=== PATIENT | male | born 1955 | race Caucasian/White ===

== ENCOUNTER → 2023-12-10 07:40 | Outpatient (REF) | payer BC, SELFPAY ==
[2023-12-10 10:57] LABS: Blood Urea Nitrogen 19 mg/dl (9-20)
[2023-12-10 12:54] LABS: Erythrocyte Sed Rate 14 mm/hour (0-20)
[2023-12-10 15:58] LABS: Rheumatoid Agglutinin Less Than 10 IU (<10 IU)
[2023-12-12 02:49] LABS: ANA, IgG Reflex to HEp-2 None Detected (None Detected)
== END ==
LOC: OIDL 07:40
PROVIDERS: ATTENDING PHYSICIAN Otolaryngology
DX: H91.22 Sudden idiopathic hearing loss, left ear (principal)
CPT/HCPCS: 36415; 82565; 84520; 85652; 86038; 86430

== ENCOUNTER → 2024-01-08 19:30 | Outpatient (REF) | payer BC, SELFPAY | LOC: MRI 19:30 | PROVIDERS: ATTENDING PHYSICIAN Otolaryngology | DX: H91.22 Sudden idiopathic hearing loss, left ear (principal); H93.12 Tinnitus, left ear | CPT/HCPCS: 70553; A9575 ==